=== PATIENT | male | born 1995 | race Caucasian/White ===

== ENCOUNTER 2017-02-23 06:34 | Emergency (ER) | payer OTHER ==
[~2017-02-23] VITALS: Ht 185.4 cm; Wt 97.7 kg
[~2017-02-23 06:34] MED LIST: Hydrocodone/Acetaminophen PO; NOMED
--- NOTE | 2017-02-23 06:47 | ED.REPORT ---
HPI-Extremity Problem Lower Date of Service Feb 23, 2017 ED Provider: Tanisha Simon MD Patient is a 21 year old male who presents to the ED complaining of a rash on his R calf onset 4 days ago. Associated symptoms include R calf swelling onset today, itching, and worsening R calf pain. His pain is constant, burning, and worse with walking. He denies fever, chills, nausea, vomiting, groin pain, or any other symptoms. He was seen at a walk-in clinic yesterday and given Keflex. He has taken 3 doses. His last does of Ibuprofen was at 0100 this morning. Nursing Notes Stated Complaint: RT LEG RED/RASH Chief Complaint: Extremity Trauma Nursing Notes Reviewed: Yes Allergies: Coded Allergies: No Known Allergies (Unverified Allergy, Unknown, 02/23/16) Scheduled Sulfamethoxazole/Trimeth 800-160 mg (Bactrim DS) 1 Each Tablet 1 TABLET PO BID Scheduled PRN ([Hydrocodone/Acetaminophen]) 1 TAB TABLET 1-2 TAB PO Q4 PRN PRN For Pain Miscellaneous Medications No Historical Medication (No Historical Medication) Ea General Time Seen by MD: 06:40 Chief Complaint Other (Rash) Hx Obtained From: Patient Arrived By: Walk-in Onset Occurred: 4 days ago Symptom Duration: Since onset Location: : Leg right Quality: Burning Severity: Current: Mild Severity: Maximum: Mild Exacerbated by: Range of motion Immunizations: Tetanus up to date Recent Healthcare: Recent doctor visit Past Medical History Past Medical History Umbilical abscess Reports: Asthma Past Surgical History Reports: Appendectomy Smoking History Never Smoker Social History Alcohol Use: "Social" Drug Use: Denies drug use Ambulatory Status Independent Review of Systems Review of Systems Note: -groin pain Constitutional: Denies: Chills, Fever Musculoskeletal: Reports: Extremity pain, Extremity swelling Skin: Reports Itching, Reports Rash Complete sys rev & neg: except as marked. GI: Denies: Nausea, Vomiting Physical Exam Initial Vital Signs Vital Signs (First) Date Time Temp Pulse Resp B/P Pulse Ox O2 Delivery O2 Flow Rate FiO2 02/23/17 06:52 36.5 64 16 141/87 98 Initial VS: Reviewed, Vital signs abnormal Head / Eyes: Atraumatic, Normocephalic Neck: Supple, Full range of motion Respiratory: No respiratory distress Cardiovascular: Intact distal pulses Neurologic: Alert, Oriented, Nonfocal Psychiatric: Mood/affect normal, Behavior normal, Normal thought content Lower Extremity / Pelvis / MS: Neurologic intact, Vascular intact R calf slightly swollen Good pulses Ankle / Foot: Neurologic intact, Vascular intact General/Constitutional: Awake, Alert, No acute distress Skin: Warm, Dry Rash / Lesion Notes: 4x10 cm area of erythema over the lateral aspect of the R calf. No abscess Lymphatic: No gross adenopathy Interpretation & Diagnostics Lab Results Interpretation Lab Results Interpretation: US DVT R CALF: No evidence of DVT Re-Eval/Medical Decision Source of Hx: Old records Re-Evaluation/Progress : Time of Eval: 08:04 Re-Evaluation/Progress Note: Discussed plan for discharge. Patient understands and agrees with plan. All questions addressed at this time. Counseled Regarding: Diagnosis, Lab results, Need for follow-up, When/why to return to ED Discharge & Departure Impression: Primary Impression: Cellulitis Site of cellulitis: extremity Site of cellulitis of extremity: lower extremity Laterality: right Qualified Code: L03.115 - Cellulitis of right lower limb Disposition: Home Discharge Condition All VS Reviewed: Yes Condition: Stable Patient Instructions: Cellulitis (ED) Additional Instructions: Thank you for entrusting us with your care. Your ultrasound shows not blood clot. This is cellulitis. Given the rash/ redness I am suspecting it is a strep cellulitis but there is really no way to confirm that at this time. There is no evidence of abscess or overwhelming infection. Finish the Keflex that you are currently on. With your MRSA exposure risks, I am going to add Septra DS (am and pm) to this. Please finish BOTH. If you find that by tomorrow the cellulitis is more than an inch or 2 outside of the lines I dean today please have a medical provider take a look at it again. Follow up with your primary doctor within the next week for re-evaluation. Return to the emergency department if you feel that you are getting worse. Your prescription was electronically sent to [facility] today. [facility]! Referrals: [facility] (PCP) [facility] Portions of this note were transcribed by Alfie Moeller. I, Dr. Simon personally performed the history, physical exam and medical decision-making; I reviewed and confirmed the accuracy of the information in the transcribed note. Signed by: Jensen Patterson, 02/23/17 Tanisha Simon MD Feb 23, 2017 06:47 ALFIE MOELLER Feb 23, 2017 07:12
[2017-02-23 06:52] VITALS: BP 141/87; PULSE 64; RESP 16; O2SAT 98
[2017-02-23] MEDS ORDERED: SULF1TAB7 PO (08:02)
[2017-02-23 08:17] VITALS: BP 141/87; PULSE 64; RESP 16; O2SAT 98
--- NOTE | 2017-02-23 08:55 | DRSVH ---
PROCEDURE: US VEINOUS LEG DUPLEX UNILATERAL, RIGHT INDICATIONS: edema, erythema TECHNIQUE: Real-time imaging, as well as color and pulse Doppler interrogation, were performed of the lower extr emity deep veins from the inguinal ligament to the popliteal fossa. COMPARISON: None. FINDINGS: The deep veins are normally compressible, and free of intraluminal thrombus. Color and pu lse Doppler demonstrate normal phasic intraluminal flow. There is normal augmentation response to di stal compression maneuver. IMPRESSION: No DVT in the lower extremities. Dictated by: Chelle Escudero M.D. on 02/23/2017 at 8:53 Approved by: Chelle Escudero M.D. on 02/23/2017 at 8:54
== END 2017-02-23 08:17 | disposition home or self-care (01) ==
LOC: SED 06:34
DX: L03.115 Cellulitis of right lower limb (principal); J45.909 Unspecified asthma, uncomplicated